=== PATIENT | female | born 1940 | race Caucasian/White ===

== ENCOUNTER → 2021-01-11 | Outpatient (CLI) | payer BC ==
--- NOTE | 2021-01-11 16:54 | KCIC ---
EXAM: CHEST ONE VIEW. HISTORY: Atrial fibrillation. COMPARISON: None. FINDINGS: A frontal view of the chest is obtained. There are no confluent infiltrates. There is no pneumothorax or pleural effusion. The heart is not en larged. There are atherosclerotic calcifications of the aorta. IMPRESSION: 1. No confluent infiltrates. Electronically signed by: Trevor Barrera MD (01/11/2021 4:51 PM) [id number]
== END ==
LOC: KCIC 15:36
PROVIDERS: ATTEND Internal Medicine
DX: I48.0 Paroxysmal atrial fibrillation (principal); I70.0 Atherosclerosis of aorta
CPT/HCPCS: 71045